=== PATIENT | male | born 2000 | race Caucasian/White ===

== ENCOUNTER 2021-08-24 19:58 | Emergency (ER) | payer BC, SELFPAY ==
[2021-08-24 20:17] VITALS: BP 145/91; PULSE 108; RESP 19; TEMP 37.8; O2SAT 100; BMI 29.5
[2021-08-24 20:32] LABS: UTC Influenza A Antigen Negative (Negative)
[2021-08-24 20:33] LABS: UTC Influenza B Antigen Negative (Negative)
--- NOTE | 2021-08-24 20:38 | HMH.EDUTC ---
[facility] [place] Disposition Clinical Impression: Exposure to COVID-19 virus Disposition: Home, Self-Care Condition on Discharge: Good Instructions: DI for COVID-19 (Suspected or Confirmed ), Preventing the Spread of Coronavirus Discharge Instructions Additional Instructions: *Monitor Temp, Over the counter Motrin or Tylenol as directed/as needed Tylenol every 4 hours and Motrin every 6 hours (as long as your family doctor has told you that you can take it) for fever or pain. and straight to ER if unable to lower temp less than 101.0 after medication given *Warm salt water gargles may help to soothe the throat *Throat Lozenges *Warm fluids like tea with honey may help to soothe the throat *Sleep elevated *Humidifier/Vaporizer Follow up IMMEDIATELY for new or worsening symptoms or no Noticeable improvement over the next 48-72 hours. 911 for difficulty breathing or swallowing You were tested for today for COVID19 your test result should be back in the next 24-48 hours, you may check your results on the [facility] if you have trouble logging on you may call support to help you You was given a handout with instructions for Self Quarantine and Self isolation for while you wait on test results and what to do if they are positive If you are positive the Health Dept will be contacting you also Make sure to take your Vitamins Vit. C Vit D and Zinc if you can take them Referrals: Chung Block [Primary Care Provider] - As needed Forms: Work/School Release Time of Disposition: 20:46 Medical Decision Making - Greg Inquiry Pt receiving controlled substance: No Greg was queried for this patient: No Vital Signs: 08/24/21 20:17 Temperature 100.1 F H Temperature Source Oral Pulse Rate [Left] 108 H Respiratory Rate 19 Blood Pressure [Right Arm] 145/91 H Blood Pressure Mean [Right Arm] 109 02 Sat by Pulse Oximetry 100 - Lab Data Lab Results 08/24/21 20:28: Influenza Type A Ag Negative, Influenza Type B Ag Negative Orders (Tests/Meds): ORDERS Category Date Time Status Covid-19 Nasal PCR ([facility]) Routine Lab 08/24/21 20:28 Ordered [facility] [place] HPI - General Stated complaint: cov test Time Seen by Provider: 08/24/21 20:38 Mode of Arrival: Ambulatory Source of Information: Patient Limitations: No Limitations Description of Symptoms (Recalled from Triage Doc. by RN): pt c/o LEONARD and body aches. pt was exposed to covid four days ago. HEENT Symptoms (Recalled from RN notes): Yes (LEONARD) Resp Symptoms (Recalled from RN notes): No Skin Symptoms (Recalled from RN notes): No MS Symptoms (Recalled from RN notes): No Functional Status (Recalled from RN notes): wnl - History of Present Illness Provider Complaint: Patient states that he was exposed to COVID several days ago and now he is having symptoms States that he has been having body aches, chills and and headache so he wanted to get tested to see if he may have COVID - Related Data Allergies Allergy/AdvReac Type Severity Reaction Status Date / Time No Known Allergies Allergy Verified 10/18/18 15:48 - Worker's Comp Is this a Worker's Comp case?: No [facility] History - Hepatitis A Screen Drug use history?: No High risk sexual behaviors?: No History of sexually transmitted infection?: No Currently employed?: No Childcare worker?: No Do you have indoor plumbing?: Yes Do you have electricity?: Yes Attestation statement:: This patient has been screened for Hepatitis A risk factors. I have reviewed the patient's past medical history: Yes ROS Obtained: Yes All systems reviewed & no additional complaints, Yes Systems reviewed as appropriate & no additional complaints - Constitutional Constitutional: Reports system reviewed and no additional complaints, except as docu, Reports body ache, Reports chills, Reports fever(s), Reports headache(s) - ENT Ears, Nose, Mouth, and Throat: Reports system reviewed and no additional complaints, except as docu, Denies nasal conges
[2021-08-24 20:56] VITALS: BP 145/91; PULSE 108; RESP 19; TEMP 37.8
== END 2021-08-24 20:57 | disposition home or self-care (01) ==
PROVIDERS: Emergency Provider Nurse Practitioner; PCP Internal Medicine
DX: U07.1 COVID-19 (principal)
CPT/HCPCS: 87804; 99202; C9803; G0463; U0003; U0005

== ENCOUNTER 2022-12-07 18:20 | Emergency (ER) | payer BC, SELFPAY ==
[2022-12-07 19:50] VITALS: BP 146/86; PULSE 80; RESP 18; TEMP 37.3; O2SAT 100; BMI 32.8
--- NOTE | 2022-12-07 19:56 | EXP.UTC ---
Discharge Plan Disposition Patient Disposition: Home, Self-Care Condition: Good Prescriptions Prescriptions: New sulfamethoxazole-trimethoprim [Bactrim DS] 800-160 mg Tablet 1 tab PO BID Qty: 20 0RF cephalexin 500 mg capsule 500 mg PO QID Qty: 40 0RF mupirocin 2 % ointment 1 applic topical TID 7 Days Qty: 15 0RF Referrals Follow up/Referrals: Chung Block MD [Primary Care Provider] - See instructions Activity Restrictions/Add. Instructions Additional Instructions/Restrictions: Follow up in 3 days to have the wound rechecked. Take the antibiotics as directed. Apply the topical antibiotics as directed. Follow up with your regular doctor. Take ibuprofen or tylenol for pain. GO TO THE ER FOR ANY WORSENING SYMPTOMS OR CONCERNS Clinical Impressions Clinical Impression: Cutaneous abscess of left lower limb, Cellulitis of left leg Stand Alone Forms Stand Alone Forms: Work/School Release Instructions Patient Instructions: Cellulitis, Boil Discharge ED Provider: Jorge Quijano [facility] General Stated complaint: possible spider bite L leg Time Seen by Provider: 12/07/22 19:56 History of Present Illness Provider Complaint: He states that for the past 3 days he has had a swollen red painful area on the front of his left thigh. He thinks he felt something bite him while he was in the bed before his symptoms began. He denies fever. He is not a diabetic. Related Data Previous Rx's Medication Instructions Recorded cephalexin 500 mg capsule 500 mg PO QID #40 caps 12/07/22 mupirocin 2 % topical ointment 1 applic topical TID 7 days #15 12/07/22 grams sulfamethoxazole 800 1 tab PO BID #20 tabs 12/07/22 mg-trimethoprim 160 mg tablet (Bactrim DS) Allergies Allergy/AdvReac Type Severity Reaction Status Date / Time No Known Allergies Allergy Verified 12/07/22 20:18 [facility] Disclaimer: The information contained in this section may have been updated after the patient was seen, as this information can be updated by other users. Social History Smoking Status: Never smoker alcohol intake: never current occupational status: employed Travel in the last 8 weeks: None ROS Obtained: Yes All systems reviewed & no additional complaints except as documented Constitutional Constitutional: Denies chills and Denies fever(s) Eyes Eyes: Denies eye discharge ENT Ears, Nose, Mouth, and Throat: Denies dizziness, Denies otalgia and Denies sore throat Cardiovascular Cardiovascular: Denies chest pain Respiratory Respiratory: Denies shortness of breath, Denies chest congestion, Denies cough, Denies stridor and Denies wheezing Gastrointestinal Gastrointestingal: Denies nausea or vomiting Musculoskeletal Musculoskeletal: Reports system reviewed and no additional complaints, except as documented and Denies arthralgias Integumentary/Breasts Skin/Breast: Reports as per HPI Neurologic Neurologic: Denies dizziness and Denies paresthesias Allergic/Immunologic Allergic/Immunologic: Denies wheezing Physical Exam General General appearance: alert and in no apparent distress Head Head exam: atraumatic, normocephalic and normal inspection Eye Eye exam: Present normal appearance, PERRL and EOMI ENT ENT exam: Present normal exam, normal oropharynx, mucous membranes moist, TM's normal bilaterally and normal external ear exam Neck Neck exam: Present normal inspection, full ROM and trachea midline; Absent meningismus or lymphadenopathy Chest Chest inspection: Present normal inspection and symmetric chest wall rise; Absent tenderness Respiratory Respiratory exam: Present normal lung sounds bilaterally; Absent respiratory distress Cardiovascular Cardiovascular exam: Present regular rate and normal rhythm; Absent JVD Abdominal Exam Abdominal exam: Present soft and normal bowel sounds; Absent distention, tenderness or guarding Extremities Exam
[2022-12-07 20:45] VITALS: BP 146/86; PULSE 80; RESP 18; TEMP 37.3; O2SAT 100
== END 2022-12-07 20:45 | disposition home or self-care (01) ==
PROVIDERS: Emergency Provider Nurse Practitioner Family; PCP Internal Medicine
DX: L02.416 Cutaneous abscess of left lower limb (principal); L03.116 Cellulitis of left lower limb; W57.XXXA Bitten or stung by nonvenomous insect and other nonvenomous arthropods, initial encounter
CPT/HCPCS: 96372; 99212; 99214; G0463; J0696

== ENCOUNTER 2025-06-01 14:08 | Outpatient (CLI) | payer MEDICAID, SELFPAY | END 2025-06-01 23:59 | disposition home or self-care (01) | LOC: RT 14:10 | PROVIDERS: PCP Internal Medicine; Visit Provider Internal Medicine | DX: I49.1 Atrial premature depolarization (principal); I47.19 Other supraventricular tachycardia; R94.31 Abnormal electrocardiogram [ECG] [EKG] | CPT/HCPCS: 93225; 93227 ==